=== PATIENT | female | born 1985 | race African-American/Black ===

== ENCOUNTER 2024-03-04 20:19 | Emergency (ER) | payer SELFPAY ==
[2024-03-04 20:21] VITALS: BP 122/80; PULSE 81; TEMP 36.7; O2SAT 96; BMI 31.1
--- NOTE | 2024-03-04 20:29 | XR_ITS ---
[address] [address] Patient Name: ARLENE ANGELA MRN: [id number] date: 1985 Sex: F Assigned Patient Location: ED.MAIN Current Patient Location: ED.MAIN Accession/Order Number: [id number] Exam Date: 03/04/2024 21:10 Report Date: 03/04/2024 21:28 At the request of: CHRISTIAN SILVA Procedure: XR chest 1V Exam: Radiographs: XR chest 1V Reason for exam: Chest pain Comparison: None XR/XR chest 1V IMPRESSION: Unremarkable chest x-ray. Electronically authenticated by: JAMES GRAFF Date: 03/04/2024 21:28
--- NOTE | 2024-03-04 20:29 | ECG_ITS ---
[facility] Test Date: 2024-03-04 Pat Name: ARLENE ANGELA Department: Room: - Gender: Female Direct Entry Midwife: : 1985 Requested By: [id number] Order Number: [id number] Reading MD: NATALIE NOE Measurements Intervals [place] Rate: 71 P: 26 MN: 170 QRS: 21 QRSD: 74 T: 26 QT: 392 QTc: 414 Interpretive Statements 1100 Sinus rhythm 9110 normal ECG No previous ECG available for comparison Electronically Signed On 03-04-2024 22:55:47 EDT by NATALIE NOE
--- NOTE | 2024-03-04 20:35 | ED.CHESTPAI1 ---
Documented by User: Gwen Hernandez 03/04/24 21:40 HPI - Chest Pain General Chief Complaint: Chest Pain Stated Complaint: CHEST PAIN Time Seen by Provider: 03/04/24 20:27 Source: patient Mode of arrival: ambulance Limitations: no limitations History of Present Illness HPI narrative: 38 year old female presents to the ED for mid chest pain. Onset was 1930 this evening. Denies fever, chills, injury, dizziness, SOB, back pain. She was given nitro, aspirin, and Zofran per EMS. She presented from a drug and alcohol treatment facility. Related Data Home Medications ?Medication ?Instructions ?Recorded ?Confirmed BuSpar 03/04/24 Suboxone 03/04/24 Vitamin 03/04/24 hydroxyzine HCl 03/04/24 quetiapine .ROUTE 03/04/24 trazadone 03/04/24 Allergies Allergy/AdvReac Type Severity Reaction Status Date / Time iodine AdvReac Intermediate Altered Verified 03/04/24 20:29 Sense of Taste Review of Systems ROS Constitutional Denies: fever or chills Ears, nose, mouth, and throat Denies: throat pain Cardiovascular Reports: chest pain Respiratory Denies: shortness of breath or cough Musculoskeletal Denies: back pain or neck pain Neurological Denies: headache or dizziness Exam Constitutional Vital Signs, click to edit/add: Last Vital Signs Temp 98.1 F 03/04/24 20:21 Pulse 81 03/04/24 20:21 Resp 14 03/04/24 20:21 BP 122/80 03/04/24 20:21 Pulse Ox 96 03/04/24 20:21 O2 Del Method Room Air 03/04/24 20:21 Common normals: no apparent distress and oriented x3 Eye Common normals: conjunctivae normal and no scleral icterus Neck & C-Spine Common normals: supple Chest Chest: symmetrical chest wall rise Respiratory Common normals: normal respiratory effort and clear to auscultation bilaterally Effort & inspection: able to speak in complete sentences Cardio Common normals: regular rate and regular rhythm Neuro Common normals: oriented x3 Sensorium/orientation: awake and alert Speech: speech normal Psych Other: Pt appeared agitated during and after a phone conversation. Pt on phone upon my entry for evaluation; pt had to be asked twice to please end call. Course Vital Signs Vital signs: Vital Signs Temperature 98.1 F 03/04/24 20:21 Pulse Rate 81 03/04/24 20:21 Respiratory Rate 14 03/04/24 20:21 Blood Pressure 122/80 03/04/24 20:21 Pulse Oximetry 96 03/04/24 20:21 Oxygen Delivery Method Room Air 03/04/24 20:21 Temperature 98.1 F 03/04/24 20:21 Pulse Rate 81 03/04/24 20:21 Respiratory Rate 14 03/04/24 20:21 Blood Pressure 122/80 03/04/24 20:21 Pulse Oximetry 96 03/04/24 20:21 Oxygen Delivery Method Room Air 03/04/24 20:21 MDM - Chest Pain Medical Records Data Attestation: I reviewed the patient's medical records. Medical records narrative: Chest x-ray was unremarkable. Initial laboratory studies were unremarkable. She was given 324 mg asa and nitro per EMS. Care was resumed to Dr. Kenny. See his dictation for further evaluation and treatment. Lab Data Attestation: I reviewed the patient's lab results. Labs: Lab Results 03/04/24 03/04/24 Range/Units 20:30 21:40 WBC 3.9 L (4.0-11.0) 10^3/uL RBC 3.81 L (4.20-5.40) 10^6/uL Hgb 10.8 L (12.0-16.0) g/dL Hct 33.3 L (36.0-48.0) % MCV 87.4 (81.0-99.0) fL MCH 28.3 (26.7-34.0) pg MCHC 32.4 (29.9-35.2) g/dL RDW 12.4 (11.0-15.0) % Plt Count 282 (150-450) 10^3/uL MPV 9.0 L (9.5-13.5) fL Neut % (Auto) 30.2 L (43.0-75.0) % Lymph % (Auto) 49.1 (20.5-60.0) % Stark % (Auto) 11.5 (1.7-12.0) % Eos % (Auto) 8.4 H (0.9-7.0) % Baso % (Auto) 0.5 (0.2-2.0) % Neut # (Auto) 1.2 L (1.4-6.5) 10^3/uL Lymph # (Auto) 1.9 (1.2-3.8) 10^3/uL Stark # (Auto) 0.5 (0.3-0.8) 10^3/uL Eos # (Auto) 0.3 (0.0-0.7) 10^3/uL Baso # (Auto) 0.0 (0.0-0.1) 10^3/uL Abs Immat Gran (auto) 0.01 (0.00-0.03) 10^3/uL Imm/Tot Granulo (auto) 0.3 (0.0-0.5) % Sodium 139 (136-145) mmol/L Potassium 3.8 (3.5-5.1) mmol/L Chloride 104 (98-107) mmol/L Carbon Dioxide 26.4 (21.0-32.0) mmol/L Anion Gap 12.4 BUN 7.0 (7.0-18.0) mg/dL Creatinine 0.79 (0.55-1.02) mg/dL Est GFR ( Amer) >60 (>=60) Est GFR (Non-Af Amer) >60 (>=60) BUN/Creatinine Ratio 8.9 Glucose 96 (74-106) mg/dL Calcium 8.3 L (8.5-10.1) mg/dL Total Bilirubin 0.2 (0.2-1.0) mg/dL AST 13 L (15-37) U/L ALT 18 (14-59) U/L Alkaline Phosphatase 49 (46-116) U/L Troponin I High Sens 7.3 8.1 (4.0-51.3) pg/mL Total Protein 6.4 (6.4-8.2) g/dL Albumin 3.3 L (3.4-5.0) g/dL Globulin 3.1 g/dL Albumin/Globulin Ratio 1.1 Urine HCG, Qual Negative (NEGATIVE) Imaging Data Chest x-ray: Attestation: I have reviewed the pertinent imaging results. Radiologist's impression: ITS Impressions Chest X-Ray 03/04/24 20:29 IMPRESSION: Unremarkable chest x-ray. Electronically authenticated by: JAMES GRAFF Date: 03/04/2024 21:28 ECG Data Attestation: ?I have reviewed the pertinent ECG results. (EKG was reviewed by the attending physician. It showed sinus rhythm at a rate of 71. No acute ST segment changes.) Interpretation: Measurements Intervals [place] Rate: 71 P: 26 MT: 170 QRS: 21 QRSD: 74 T: 26 QT: 392 QTc: 414 Interpretive Statements 1100 Sinus rhythm 9110 normal ECG No previous ECG available for comparison Discharge Plan Discharge Stand Alone Forms: Work/School Release, Portal Instructions Chief Complaint: Chest Pain Clinical Impression: Chest pain Patient Disposition: Home, Self-Care Time of Disposition Decision: 22:12 Condition: Good Mode of Transportation: Private Vehicle Prescriptions / Home Meds: No Action Suboxone BuSpar quetiapine [Seroquel] .ROUTE trazadone hydroxyzine HCl Vitamin Print Language: Singaporean Instructions: Chest Pain (ED) Referrals: Physician,Non-Staff, MD [Primary Care Provider] - 1 week Documented by User: Juan Manuel Kenny MD 03/04/24 22:13 HPI - Chest Pain General Chief Complaint: Chest Pain Stated Complaint: CHEST PAIN Time Seen by Provider: 03/04/24 20:27 Related Data Home Medications ?Medication ?Instructions ?Recorded ?Confirmed BuSpar 03/04/24 Suboxone 03/04/24 Vitamin 03/04/24 hydroxyzine HCl 03/04/24 quetiapine .ROUTE 03/04/24 trazadone 03/04/24 Allergies Allergy/AdvReac Type Severity Reaction Status Date / Time iodine AdvReac Intermediate Altered Verified 03/04/24 20:29 Sense of Taste Exam Constitutional Vital Signs, click to edit/add: Last Vital Signs Temp 98.1 F 03/04/24 20:21 Pulse 81 03/04/24 20:21 Resp 14 03/04/24 20:21 BP 122/80 03/04/24 20:21 Pulse Ox 96 03/04/24 20:21 O2 Del Method Room Air 03/04/24 20:21 Course Vital Signs Vital signs: Vital Signs Temperature 98.1 F 03/04/24 20:21 Pulse Rate 81 03/04/24 20:21 Respiratory Rate 14 03/04/24 20:21 Blood Pressure 122/80 03/04/24 20:21 Pulse Oximetry 96 03/04/24 20:21 Oxygen Delivery Method Room Air 03/04/24 20:21 Temperature 98.1 F 03/04/24 20:21 Pulse Rate 81 03/04/24 20:21 Respiratory Rate 14 03/04/24 20:21 Blood Pressure 122/80 03/04/24 20:21 Pulse Oximetry 96 03/04/24 20:21 Oxygen Delivery Method Room Air 03/04/24 20:21 MDM - Chest Pain MDM Narrative Medical decision making narrative: 2 sets of troponin are negative as well as the rest of her workup. She is able to be released. Findings were discussed with the patient. At this point I do not suspect cardiac etiology. Differential Diagnosis Differential diagnosis: Likely pneumothorax, atypical chest pain, st elevation myocardial infarction, costochondritis, chest pain and other (Anxiety) Lab Data Labs: Lab Results 03/04/24 03/04/24 Range/Units 20:30 21:40 WBC 3.9 L (4.0-11.0) 10^3/uL RBC 3.81 L (4.20-5.40) 10^6/uL Hgb 10.8 L (12.0-16.0) g/dL Hct 33.3 L (36.0-48.0) % MCV 87.4 (81.0-99.0) fL MCH 28.3 (26.7-34.0) pg MCHC 32.4 (29.9-35.2) g/dL RDW 12.4 (11.0-15.0) % Plt Count 282 (150-450) 10^3/uL MPV 9.0 L (9.5-13.5) fL Neut % (Auto) 30.2 L (43.0-75.0) % Lymph % (Auto) 49.1 (20.5-60.0) % Stark % (Auto) 11.5 (1.7-12.0) % Eos % (Auto) 8.4 H (0.9-7.0) % Baso % (Auto) 0.5 (0.2-2.0) % Neut # (Auto) 1.2 L (1.4-6.5) 10^3/uL Lymph # (Auto) 1.9 (1.2-3.8) 10^3/uL Stark # (Auto) 0.5 (0.3-0.8) 10^3/uL Eos # (Auto) 0.3 (0.0-0.7) 10^3/uL Baso # (Auto) 0.0 (0.0-0.1) 10^3/uL Abs Immat Gran (auto) 0.01 (0.00-0.03) 10^3/uL Imm/Tot Granulo (auto) 0.3 (0.0-0.5) % Sodium 139 (136-145) mmol/L Potassium 3.8 (3.5-5.1) mmol/L Chloride 104 (98-107) mmol/L Carbon Dioxide 26.4 (21.0-32.0) mmol/L Anion Gap 12.4 BUN 7.0 (7.0-18.0) mg/dL Creatinine 0.79 (0.55-1.02) mg/dL Est GFR ( Amer) >60 (>=60) Est GFR (Non-Af Amer) >60 (>=60) BUN/Creatinine Ratio 8.9 Glucose 96 (74-106) mg/dL Calcium 8.3 L (8.5-10.1) mg/dL Total Bilirubin 0.2 (0.2-1.0) mg/dL AST 13 L (15-37) U/L ALT 18 (14-59) U/L Alkaline Phosphatase 49 (46-116) U/L Troponin I High Sens 7.3 8.1 (4.0-51.3) pg/mL Total Protein 6.4 (6.4-8.2) g/dL Albumin 3.3 L (3.4-5.0) g/dL Globulin 3.1 g/dL Albumin/Globulin Ratio 1.1 Urine HCG, Qual Negative (NEGATIVE) Imaging Data Chest x-ray: Radiologist's impression: ITS Impressions Chest X-Ray 03/04/24 20:29 IMPRESSION: Unremarkable chest x-ray. Electronically authenticated by: JAMES GRAFF Date: 03/04/2024 21:28 Heart Score History: Slightly/Non-Suspicious ECG: Normal Age: <45 years Risk Factors: No Risk Factors Troponin: <Normal Limit Total Heart Score Recommendations & Risks:: 0 Discharge Plan Discharge Stand Alone Forms: Work/School Release, Portal Instructions Chief Complaint: Chest Pain Clinical Impression: Chest pain Patient Disposition: Home, Self-Care Time of Disposition Decision: 22:12 Condition: Good Mode of Transportation: Private Vehicle Prescriptions / Home Meds: No Action Suboxone BuSpar quetiapine [Seroquel] .ROUTE trazadone hydroxyzine HCl Vitamin Print Language: Singaporean Instructions: Chest Pain (ED) Referrals: Physician,Non-Staff, MD [Primary Care Provider] - 1 week
[2024-03-04 20:52] LABS: Basophils Percent Auto 0.5 % (0.2-2.0); Eosinophils Absolute Auto 0.3 10^3/uL (0.0-0.7); Eosinophils Percent Auto 8.4 % (0.9-7.0); Hematocrit 33.3 % (36.0-48.0); Hemoglobin 10.8 g/dL (12.0-16.0); Immature Granulocytes Abs Auto 0.01 10^3/uL (0.00-0.03); Immature Granulocytes Pct Auto 0.3 % (0.0-0.5); Lymphocytes Absolute Auto 1.9 10^3/uL (1.2-3.8); Lymphocytes Percent Auto 49.1 % (20.5-60.0); Mean Corpuscular HGB Conc 32.4 g/dL (29.9-35.2); Mean Corpuscular Hemoglobin 28.3 pg (26.7-34.0); Mean Corpuscular Volume 87.4 fL (81.0-99.0); Monocytes Absolute Auto 0.5 10^3/uL (0.3-0.8); Monocytes Percent Auto 11.5 % (1.7-12.0); Neutrophils Absolute Auto 1.2 10^3/uL (1.4-6.5); Neutrophils Percent Auto 30.2 % (43.0-75.0); Platelet Count 282 10^3/uL (150-450); Red Blood Count 3.81 10^6/uL (4.20-5.40); Red Cell Distribution Width 12.4 % (11.0-15.0); White Blood Count 3.9 10^3/uL (4.0-11.0)
[2024-03-04 21:00] LABS: HCG Qualitative Urine* NEGATIVE (NEGATIVE); Internal Control Within Normal Limits
[2024-03-04 21:10] LABS: Alanine Aminotransferase 18 U/L (14-59); Albumin Globulin Ratio 1.1; Albumin Level 3.3 g/dL (3.4-5.0); Alkaline Phosphatase 49 U/L (46-116); Anion Gap 12.4; Aspartate Amino Transferase 13 U/L (15-37); BUN Creatinine Ratio 8.9; Bilirubin Total 0.2 mg/dL (0.2-1.0); Calcium 8.3 mg/dL (8.5-10.1); Carbon Dioxide 26.4 mmol/L (21.0-32.0); Chloride 104 mmol/L (98-107); Estimated GFR (African America >60 (>=60); Estimated GFR (Non-African Ame >60 (>=60); Globulin 3.1 g/dL; Glucose 96 mg/dL (74-106); Potassium 3.8 mmol/L (3.5-5.1); Sodium 139 mmol/L (136-145); Total Protein 6.4 g/dL (6.4-8.2); Troponin I High Sensitivity 7.3 pg/mL (4.0-51.3)
[2024-03-04 22:09] LABS: Troponin I High Sensitivity 8.1 pg/mL (4.0-51.3)
== END 2024-03-04 23:10 | disposition home or self-care (01) ==
PROVIDERS: Nurse Practitioner Family; Emergency Provider Emergency Medicine
DX: R07.9 Chest pain, unspecified (principal)
CPT/HCPCS: 36415; 71045; 80053; 84484; 84703; 85025; 93005; 99285